=== PATIENT | female | born 1960 | race Caucasian/White ===

== ENCOUNTER → 2021-08-21 14:39 | Outpatient (BNVA) | payer OTHER, SELFPAY | PROVIDERS: PCP Internal Medicine; Visit Provider Hospitalist | DX: Z23 Encounter for immunization (principal); R91.8 Other nonspecific abnormal finding of lung field; J44.9 Chronic obstructive pulmonary disease, unspecified; J70.1 Chronic and other pulmonary manifestations due to radiation; K44.9 Diaphragmatic hernia without obstruction or gangrene | CPT/HCPCS: 90471; 90732 ==

== ENCOUNTER → 2022-11-05 10:02 | Outpatient (BNVA) | payer OTHER, SELFPAY | PROVIDERS: PCP Internal Medicine; Visit Provider Hospitalist | DX: Z13.89 Encounter for screening for other disorder (principal) ==

== ENCOUNTER 2023-05-06 10:40 | Outpatient (AMB) | payer OTHER, SELFPAY ==
[2023-05-06 10:45] VITALS: BP 128/70; PULSE 77; O2SAT 98; BMI 28.8
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
== END 2023-05-06 11:22 | disposition home or self-care (01) ==
PROVIDERS: PCP Internal Medicine; Visit Provider Hospitalist
DX: J44.9 Chronic obstructive pulmonary disease, unspecified (principal); R91.8 Other nonspecific abnormal finding of lung field; J70.1 Chronic and other pulmonary manifestations due to radiation; K44.9 Diaphragmatic hernia without obstruction or gangrene
CPT/HCPCS: 99214

== ENCOUNTER → 2023-05-06 10:40 | Outpatient (BNVA) | payer OTHER, SELFPAY | PROVIDERS: PCP Internal Medicine; Visit Provider Hospitalist | DX: K21.9 Gastro-esophageal reflux disease without esophagitis (principal) ==

== ENCOUNTER 2024-05-11 10:36 | Outpatient (AMB) | payer MEDICARE, SELFPAY ==
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
[2024-05-11 10:44] VITALS: PULSE 68; O2SAT 99; BMI 28.5
== END 2024-05-11 11:09 | disposition home or self-care (01) ==
PROVIDERS: PCP Internal Medicine; Visit Provider Hospitalist
DX: J44.9 Chronic obstructive pulmonary disease, unspecified (principal); R91.8 Other nonspecific abnormal finding of lung field; J70.1 Chronic and other pulmonary manifestations due to radiation; K44.9 Diaphragmatic hernia without obstruction or gangrene
CPT/HCPCS: 99214

== ENCOUNTER → 2024-05-11 10:36 | Outpatient (BNVA) | payer MEDICARE, SELFPAY | PROVIDERS: PCP Internal Medicine; Visit Provider Hospitalist | DX: J44.9 Chronic obstructive pulmonary disease, unspecified (principal); J70.1 Chronic and other pulmonary manifestations due to radiation; R91.8 Other nonspecific abnormal finding of lung field; K44.9 Diaphragmatic hernia without obstruction or gangrene | CPT/HCPCS: 99212 ==

== ENCOUNTER 2025-05-09 08:51 | Outpatient (AMB) | payer MEDICARE, SELFPAY ==
[2025-05-09 08:55] VITALS: BP 124/60; PULSE 77; O2SAT 98; BMI 28.8
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
--- OUTSIDE RECORDS SUMMARY | 2025-05-09 09:25 | XMS_ITS | Patient Health Record ---
Author Organization [facility] Address [address] [place] [address] Care Team Providers Care Loan Adviser Name Role Phone Jose Vargas MD Primary Care Provider Unavail able Karuna Bonds Unavailable [phone] Reason For Referral No Information Medications Medication SIG (Take, Route, Fr equency, Duration) Notes Start Date End Date Status Combivent 103-18 2 INHALE four times daily; Duration: -3 Joni-MJ 09/18/2011 Active Mimvey Lo 0.5-0.1MG 1 ORAL once daily; Duration: -3 Joni-MJ 09/27/2014 Active Singulair 10 MG 1 ORAL daily; Duration: -3 Joni-MJ 012 Active Problems Problem Type SNOMED Code ICD Code Onset Dates Problem Status W/U Status Risk Notes Problem Urinary tract infectious disease (disorder) (92615780) Urinary tract infection, site not specified (599.0) Active confirmed Diag Problem Postmenopausal bleeding (74462511) Postmenopausal bleeding (627.1) Active confirmed Diag Problem Menopausal symptom (10736634) Symptomatic menopausal or female climacteric states (627.2) Active confirmed Diag Problem Gynecological examination normal (034111988944667) Routine gynecological examination (V72.31) Active confirmed Diag Problem Hormone replacement therapy (493515509) Hormone replacement therapy (postmenopausal) (V07.4) Active confirmed Diag Plan Of Treatment Pending Test Test Name Order Date Ultrasound : Biopsy Breast Left 01/24/20 15 Ultrasound : Breast(s), unilateral or bi lateral 01/19/2015 DIAGNOSTIC MAMMOGRAM, LEFT BREAST 2014 Insurance Providers Payer Name Payer Address Payer Phone Subscriber Number Group Number Insured Name Patient Relationship to Insured Coverage Start Date Coverage End Date [facility] [address] [facility] [id number] [phone] [id number] NAMRATA THOMAS Spouse - patient is the spouse of the insured Medical (General) History Medical History History ICD Code Hormone replacement therapy (postmenopau barbara) V07.4 Symptomatic menopausal or female climact soco states 627.2 Postmenopausal bleeding 627.1 Urinary tract infection, site not specif ied 599.0 BREAST CANCER
--- OUTSIDE RECORDS SUMMARY | 2025-05-09 09:25 | XMS_ITS | Clinical Summary ---
Author Organization [facility] Address [address] [place] [address] [place] [id number] Phone Care Team Providers Care Front Attendant Name Role Phone Jose Vargas MD Primary Care Provider [phone] Gisselle Benavides MD Unavailable [phone] Allergies No known active allergies Active Problems Problem Noted Date Diagnosed Date Malignant neoplasm of female breast 02/10/2015 Overview (08/22/2015): Malignant neoplasm of female breast Asthma 02/09/2015 Overview (08/22/2015): Asthma Social History Tobacco Use Types Packs/Day Years Used Date Smoking Tobacco: Never Assessed Comments Unknown Sex and Gender Information Value Date Recorded Sex Assigned at Not on file Legal Sex Female 9:33 AM EDT Gender Identity Not on file Sexual Orientation Not on file Plan of Treatment Not on file Medical Devices Not on file Insurance [address] [place] [id number] [facility] [place] [id number] [facility] Care Teams Front Attendant Relationship Specialty Start Date End Date Jose Vargas MD [address] [place] [address] PCP - General Internal Medicine 02/09/15 Gisselle Benavides MD [address] [place] [id number] [email or web address] Primary Oncologist Radiation Oncology 12/11/15 Additional Source Comments The information contained in this document represents components of the legal health record. It is not the complete legal health record.[facility]
== END 2025-05-09 09:25 | disposition home or self-care (01) ==
LOC: HO.HPS 08:52
PROVIDERS: PCP Internal Medicine; Visit Provider Hospitalist
DX: J44.9 Chronic obstructive pulmonary disease, unspecified (principal); R91.8 Other nonspecific abnormal finding of lung field; J70.1 Chronic and other pulmonary manifestations due to radiation; K44.9 Diaphragmatic hernia without obstruction or gangrene; T78.40XA Allergy, unspecified, initial encounter
CPT/HCPCS: 99214; G2211

== ENCOUNTER 2025-05-09 08:51 | Outpatient (REF) | payer MEDICARE, SELFPAY ==
[2025-05-09 09:52] LABS: MANUAL DIFF FLAG NO
[2025-05-09 10:13] LABS: Hematocrit 38.0 % (37.0-47.0); Hemoglobin 13.3 g/dl (12.0-16.0); Imm Gran Abs Auto 0.02 X10*3/uL (0.00-0.03); Imm Gran Pct Auto 0.3 % (0.0-0.4); Lymphocytes Absolute Auto 1.7 X10*3/uL (1.2-4.9); Mean Corpuscular HGB Conc 35.0 g/dl (31.0-35.0); Mean Corpuscular Hemoglobin 32.1 pg (27.0-33.0); Mean Corpuscular Volume 91.8 fL (80.0-98.0); NRBC Abs Auto 0.000 X10*3/uL (0.0-0.012); NRBC Pct Auto 0.0 /100WBC (0.0-0.2); Platelet Count 190 X10*3/uL (160-400); Red Blood Count 4.14 X10*6/uL (4.20-5.50); White Blood Count 6.3 X10*3/uL (4.8-10.8)
[2025-05-09 10:54] LABS: Anion Gap 12 (12-20); Blood Urea Nitrogen 16 mg/dL (9-16); Calcium 9.2 mg/dL (8.4-10.2); Carbon Dioxide 28 mmol/L (22-29); Chloride 106 mmol/L (96-108); Estimated Glomerular Filt Rate > 60; Potassium 3.9 mmol/L (3.3-5.1); Sodium 142 mmol/L (135-145)
[2025-05-10 10:43] LABS: Immunoglobulin G Subclass 1 500 mg/dL (382-929); Immunoglobulin G Subclass 2 373 mg/dL (241-700); Immunoglobulin G Subclass 3 59 mg/dL (22-178); Immunoglobulin G Subclass 4 46.0 mg/dL (4-86); Immunoglobulin G Total 969 mg/dL (600-1540)
[2025-05-11 22:53] LABS: Class Alternaria alternata 0; Class Aspergillus fumigatus 0; Class Bermuda Grass 0; Class Birch 2; Class Cat Dander 1; Class Cladosporium herbarum 0; Class Cockroach 0; Class Common Ragweed 0; Class Cottonwood 0; Class Derm. pterony 2; Class Dermatophagoides farinae 2; Class Dog Dander 0; Class Elm 0; Class Maple Box Elder 0; Class Mountain Cedar 0; Class Mouse Urine Protein 0; Class Mugwort 0; Class Oak 1; Class Penicillium crysogenum 0; Class Rough Pigweed 0; Class Sheep Sorrel 0; Class Sycamore 0; Class Timothy Grass 0; Class Walnut Tree 0; Class White Ash 0; Class White Mulberry 0; D002 - IgE D farinae 0.95 kU/L; E001 - IgE Cat Dander 0.58 kU/L; E005 - IgE Dog Dander <0.10 kU/L; G006 - IgE Timothy Grass <0.10 kU/L; I006-IgE Cockroach, German <0.10 kU/L; M002 - IgE Cladosporium herbar <0.10 kU/L; M003 - IgE Aspergillus fumigat <0.10 kU/L; M006 - IgE Alternaria alternat <0.10 kU/L; T001 IgE Maple/Box Elder <0.10 kU/L; T006 - IgE Cedar, Mountain <0.10 kU/L; T007 - IgE Oak, White 0.62 kU/L; T008 IgE Elm, American <0.10 kU/L; T010 - IgE Walnut <0.10 kU/L; T011 - IgE Maple Leaf Sycamore <0.10 kU/L; T014 - IgE Cottonwood <0.10 kU/L; T015 - IgE Ash, White <0.10 kU/L; T070 - IgE White Mulberry <0.10 kU/L; W001 - IgE Ragweed, Short <0.10 kU/L; W006 - IgE Mugwort <0.10 kU/L; W014 IgE Pigweed, Common <0.10 kU/L; W018 IgE Sheep Sorrel <0.10 kU/L
[2025-05-18 08:29] LABS: Asperg fumigatus Precip Abs NEGATIVE; Micropoly faeni Abs NEGATIVE; Saccharo pora viridis Abs NEGATIVE; Thermo candidus Abs NEGATIVE
== END 2025-05-09 08:52 | disposition home or self-care (01) ==
LOC: HO.LAB 08:51
PROVIDERS: PCP Internal Medicine; Visit Provider Hospitalist
DX: J44.9 Chronic obstructive pulmonary disease, unspecified (principal); J70.1 Chronic and other pulmonary manifestations due to radiation; K44.9 Diaphragmatic hernia without obstruction or gangrene; T78.40XA Allergy, unspecified, initial encounter; J45.909 Unspecified asthma, uncomplicated; R91.1 Solitary pulmonary nodule
CPT/HCPCS: 36415; 80048; 82784; 82785; 85025; 85652; 86003; 86331; 86606; 86609; 99212

== ENCOUNTER 2025-09-01 08:42 | Outpatient (AMB) | payer MEDICARE, SELFPAY ==
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
[2025-09-01 08:48] VITALS: BP 130/76; PULSE 72; O2SAT 99; BMI 29.1
== END 2025-09-01 09:20 | disposition home or self-care (01) ==
PROVIDERS: PCP Internal Medicine; Visit Provider Hospitalist
DX: J44.9 Chronic obstructive pulmonary disease, unspecified (principal); R91.8 Other nonspecific abnormal finding of lung field; J70.1 Chronic and other pulmonary manifestations due to radiation; K44.9 Diaphragmatic hernia without obstruction or gangrene; T78.40XA Allergy, unspecified, initial encounter
CPT/HCPCS: 99214

== ENCOUNTER → 2025-09-01 08:42 | Outpatient (BNVA) | payer MEDICARE, SELFPAY | PROVIDERS: PCP Internal Medicine; Visit Provider Hospitalist | DX: J44.89 Other specified chronic obstructive pulmonary disease (principal); R91.8 Other nonspecific abnormal finding of lung field; J70.1 Chronic and other pulmonary manifestations due to radiation; K44.9 Diaphragmatic hernia without obstruction or gangrene; T78.40XA Allergy, unspecified, initial encounter | CPT/HCPCS: 99212 ==